=== PATIENT | female | born 1995 | race Two or more races ===

== ENCOUNTER → 2017-07-23 | Emergency (ER) | payer OTHER ==
[~2017-07-23] VITALS: Ht 165.1 cm; Wt 77.1 kg
== END | disposition designated cancer center or children's hospital (05) ==
LOC: ER 04:24
DX: S21.202A Unspecified open wound of left back wall of thorax without penetration into thoracic cavity, initial encounter (principal); S71.102A Unspecified open wound, left thigh, initial encounter; S71.101A Unspecified open wound, right thigh, initial encounter; S61.401A Unspecified open wound of right hand, initial encounter; S51.802A Unspecified open wound of left forearm, initial encounter; S41.002A Unspecified open wound of left shoulder, initial encounter; X94.0XXA Assault by shotgun, initial encounter; Y93.89 Activity, other specified; Y92.488 Other paved roadways as the place of occurrence of the external cause; Y99.8 Other external cause status